=== PATIENT | female | born 1950 | race Caucasian/White ===

== ENCOUNTER → 2016-05-12 | Outpatient (CLI) | payer MEDICARE, OTHER ==
[2016-05-12 08:01] LABS: BASOPHILS % (AUTO) 1 % (0-2); EOSINOPHILS # (AUTO) 0.5 10^3uL; EOSINOPHILS % (AUTO) 4 % (0-4); LYMPHOCYTES # (AUTO) 4.8 X10^3; MEAN CORPUSCULAR HGB CONC 33.7 g/dL (31.0-37.0); MEAN CORPUSCULAR VOLUME 86 FL (80-100); MEAN PLATELET VOLUME 11.6 FL (6.0-9.5); MONOCYTES # (AUTO) 1.3 X10^3; MONOCYTES % (AUTO) 11 % (3-11); NEUTROPHILS # (AUTO) 5.7 X10^3; NEUTROPHILS % (AUTO) 46 % (51-67); PLATELET COUNT 383 10^3uL (150-450)
[2016-05-12 08:39] LABS: ALBUMIN 4.1 g/dL (3.4-5.0); ANION GAP 17.1 MEQ/L (3-15); CALCULATED IONIZED CALCIUM 4.3 mg/dL (3.8-4.6); TOTAL PROTEIN 7.2 g/dL (6.4-8.5)
== END ==
LOC: LAB 07:48
PROVIDERS: ATTEND Internal Medicine
DX: Z00.00 Encounter for general adult medical examination without abnormal findings (principal); K21.9 Gastro-esophageal reflux disease without esophagitis; I10 Essential (primary) hypertension; E78.4 Other hyperlipidemia; R73.09 Other abnormal glucose; E03.8 Other specified hypothyroidism; M81.0 Age-related osteoporosis without current pathological fracture
CPT/HCPCS: 36415; 80053; 80061; 82306; 84443; 85025; 86803

== ENCOUNTER → 2016-05-28 | Outpatient (CLI) | payer MEDICARE, OTHER | LOC: RAD 09:22 | PROVIDERS: ATTEND Internal Medicine Sleep Medicine | DX: R93.8 Abnormal findings on diagnostic imaging of other specified body structures (principal) | CPT/HCPCS: 71250 ==

== ENCOUNTER → 2016-06-10 | Outpatient (CLI) | payer MEDICARE, OTHER | LOC: RAD 13:17 | PROVIDERS: ATTEND Internal Medicine | DX: Z12.31 Encounter for screening mammogram for malignant neoplasm of breast (principal); M81.0 Age-related osteoporosis without current pathological fracture | CPT/HCPCS: 77080; G0202 ==

== ENCOUNTER → 2016-06-27 | Outpatient (CLI) | payer MEDICARE, OTHER ==
[~2016-06-27] VITALS: Ht 157.5 cm; Wt 75.7 kg
[~2016-06-27] MED LIST: NS FLUSH 3 ML PRN IV; ZOLEDRONIC ACID 5 MG/100 ML 100 ML IV ONE
[2016-06-27 13:13] VITALS: BP 137/81
[2016-06-27] MEDS: NS FLUSH 10 ML PRN IV ×2 (13:37→13:38)
== END ==
LOC: EUOP 12:46
PROVIDERS: ATTEND Internal Medicine
DX: M81.0 Age-related osteoporosis without current pathological fracture (principal)
CPT/HCPCS: 36000; J3489; 96365

== ENCOUNTER 2016-07-18 08:46 | Emergency (ER) | payer MEDICARE, OTHER ==
[~2016-07-18] VITALS: Ht 160 cm; Wt 82.5 kg
[~2016-07-18 08:46] MED LIST changes: +ACET-2264 PO; +ACET1TAB43 PO; +ALBU8.5H6 IH; +AMIT10TA6 PO; +AMOX875T2 PO; +ASP81CT PO; +ATOR10TA PO; +ATOR80TA PO; +AZIT250T PO; +CHOL500014 PO; +CITA20TA12 PO; +CLPD75T PO; +CTLP20T PO; +DICY10CA26 GT; +DIPH1TAB45 PO; +GABA300C PO; +GUAI120013 PO; +GUAI473L29 PO; +LEVO750T76 PO; +LEVO75TA4 PO; +LSRT50T PO; +NF-TORA10 PO; -NS FLUSH 3 ML PRN IV; +TIOT18CA IH; -ZOLEDRONIC ACID 5 MG/100 ML 100 ML IV ONE; +[UNRECOGNIZED DRUG - CODE] PO; +protonix PO; +ranitidine PO
--- OUTSIDE RECORDS SUMMARY | 2016-07-18 08:54 | XMS REPORT ---
Author Author GENERATED, SYSTEM Organization Unknown Address Unknown Phone Unavailable Care Team Providers Care Director Non Profit Name Role Phone UNASSIGNED DOCTOR , DOCTOR PP [phone] Reason For Visit Reason for Visit from 07/09/2015 2:15 AM:Pt Stated Reason for Adm : chest pain Chief Complaint CHEST PAIN Social History Social History from 07/10/2015 3:03 PM:Tobacco Use? : Former SmokerSocial History from 07/09/2015 2:15 AM:Tobacco Use? : Former Smoker Functional Status Functional Status from 07/10/2015 7:26 AM:LOC : AlertOriented To : Person,Place, Time,EventWeight Bearing Status : FullAssist Level : Independent# Assists : 1Functional Status from 07/09/2015 8:16 PM:LOC : AlertOriented To : Person,Place, Time,EventWeight Bearing Status : FullAssist Level : Partial# Assists : 1Functional Status from 07/09/2015 7:33 AM:LOC : AlertOriented To : Person,Place, TimeWeight Bearing Status : FullAssist Level : Partial# Assists : 1Functional Status from 07/09/2015 2:15 AM:LOC : AlertOriented To : Person,Place,Time, EventWeight Bearing Status : FullAssist Level : Partial# Assists : 1 Vital Signs Hospital Vital Signs from 07/10/2015 3:15 PM:Height : 5/2 ft,inPulse : 69Respirations : 20BP : 124/57Hospital Vital Signs from 07/10/2015 2:15 PM: Height : 5/2 ft,inPulse : 67Respirations : 20BP : 125/62Hospital Vital Signs from 07/10/2015 1:15 PM:Height : 5/2 ft,inPulse : 74Respirations : 20BP : 115/ 53Hospital Vital Signs from 07/10/2015 12:43 PM:Height : 5/2 ft,inPulse : 75Respirations : 20BP : 132/61Hospital Vital Signs from 07/10/2015 12:15 PM: Height : 5/2 ft,inPulse : 73Respirations : 20BP : 131/64Hospital Vital Signs from 07/10/2015 12:05 PM:Height : 5/2 ft,inPulse : 69Respirations : 20BP : 129/ 71Hospital Vital Signs from 07/10/2015 11:51 AM:Height : 5/2 ft,inPulse : 78Respirations : 20BP : 129/57Hospital Vital Signs from 07/10/2015 11:32 AM: Height : 5/2 ft,inPulse : 73Respirations : 20BP : 133/63Hospital Vital Signs from 07/10/2015 11:14 AM:Height : 5/2 ft,inTemperature : 98.0 FPulse : 72Respirations : 20BP : 128/59Hospital Vital Signs from 07/10/2015 9:33 AM: Height : 5/2 ft,inHospital Vital Signs from 07/10/2015 7:23 AM:Height : 5/2 ft, inTemperature : 97.8 FPulse : 73Respirations : 20BP : 126/58Hospital Vital Signs from 07/10/2015 5:00 AM:Height : 5/2 ft,inTemperature : 97.2 FPulse : 69Respirations : 20BP : 137/65Hospital Vital Signs from 07/10/2015 2:10 AM: Weight : 78.5/ kgHeight : 5/2 ft,inHospital Vital Signs from 07/09/2015 10:40 PM: Height : 5/2 ft,inTemperature : 97.2 FPulse : 77Respirations : 18BP : 130/ 60Hospital Vital Signs from 07/09/2015 7:33 PM:Height : 5/2 ft,inTemperature : 97.6 FPulse : 65Respirations : 20BP : 121/77Hospital Vital Signs from 07/09/2015 3:24 PM:Height : 5/2 ft,inTemperature : 97.4 FPulse : 63Respirations : 20BP : 112/56Hospital Vital Signs from 07/09/2015 11:10 AM:Height : 5/2 ft, inTemperature : 96.5 FPulse : 65Respirations : 18BP : 122/69Hospital Vital Signs from 07/09/2015 7:33 AM:Heart Rate : 60Hospital Vital Signs from 07/09/2015 7:27 AM:Height : 5/2 ft,inTemperature : 97.2 FPulse : 60Respirations : 18BP : 132/64Hospital Vital Signs from 07/09/2015 4:34 AM:Height : 5/2 ft,inTemperature : 96.4 FPulse : 58Respirations : 20BP : 140/66Hospital Vital Signs from 2015 2:15 AM:Weight : 78.8/ kgHeight : 5/2 ft,inHospital Vital Signs from 2015 2:03 AM:Weight : 78.8/ kgHeight : 5/2 ft,inTemperature : 96.7 FPulse : 64Respirations : 20BP : 154/73 Results Chemistry from 07/10/2015 6:31 AMSODIUM 140 MMOL/L (136-145 MMOL/L) POTASSIUM 4.0 MMOL/L (3.5-5.1 MMOL/L) CHLORIDE 106 MMOL/L (98-107 MMOL/L) TCO2 27.8 MMOL/L (21.0-32.0 MMOL/L) *ANION GAP 6.2 MMOL/L L (8.0-16.0 MMOL/L) BUN 16 MG/DL (7-18 MG/DL) CREATININE 0.83 MG/DL (0.55-1.02 MG/DL) *BUN/CREATININE RATIO 19.3 H (9.1-17.0 ) GLUCOSE 104 MG/DL H (65-99 MG/DL) *GFR EST NON AFR WALLISIAN 73 ML/MIN *GFRA EST AFR AMER 84 ML/MIN CALCIUM 9.0 MG/DL (8.5-10.1 MG/DL) BILIRUBIN TOTAL 0.60 MG/DL (0.20-1.00 MG/DL) TOTAL PROTEIN 6.9 GM/DL (6.4-8.2 GM/DL) ALBUMIN 3.6 GM/DL (3.4-5.0 GM/DL) *GLOBULIN 3.3 GM/DL (2.3-3.5 GM/DL) *A/G RATIO 1.1 MG/DL L (1.5-2.2 MG/DL) ALK PHOS 123 U/L H (46-116 U/L) ALT (SGPT) 41 U/L (16-63 U/L) AST (SGOT) 24 U/L (15-37 U/L)Chemistry from 07/09/2015 2:36 PMTROPONIN-I 0.763 NG /ML H (0.000-0.056 NG/ML)Chemistry from 07/09/2015 9:00 AMTROPONIN-I 0.453 NG/ML H (0.000-0.056 NG/ML)Chemistry from 07/09/2015 5:35 AMSODIUM 138 MMOL/L (136-145 MMOL/L) POTASSIUM 4.3 MMOL/L (3.5-5.1 MMOL/L) CHLORIDE 106 MMOL/L (98-107 MMOL/L) TCO2 25.9 MMOL/L (21.0-32.0 MMOL/L) *ANION GAP 6.1 MMOL/L L (8.0-16.0 MMOL/L) BUN 19 MG/DL H (7-18 MG/DL) CREATININE 0.85 MG/DL (0.55-1.02 MG/DL) *BUN/CREATININE RATIO 22.4 H (9.1-17.0 ) GLUCOSE 110 MG/DL H (65-99 MG/DL) *GFR EST NON AFR WALLISIAN 71 ML/MIN *GFRA EST AFR AMER 82 ML/MIN CALCIUM 8.8 MG/DL (8.5-10.1 MG/DL) BILIRUBIN TOTAL 0.40 MG/DL (0.20-1.00 MG/DL) TOTAL PROTEIN 6.6 GM/DL (6.4-8.2 GM/DL) ALBUMIN 3.5 GM/DL (3.4-5.0 GM/DL) *GLOBULIN 3.1 GM/DL (2.3-3.5 GM/DL) *A/G RATIO 1.1 MG/DL L (1.5-2.2 MG/DL) ALK PHOS 123 U/L H (46-116 U/L) ALT (SGPT) 42 U/L (16-63 U/L) AST (SGOT) 28 U/L (15-37 U/L)Chemistry from 07/09/2015 2:48 AMTROPONIN-I 0.071 NG /ML H (0.000-0.056 NG/ML)Hematology from 07/10/2015 6:31 AMWBC 8.6 X10e3/UL (3.6- 11.2 X10e3/UL) RBC 4.72 X10e6/UL (3.63-4.92 X10e6/UL) HEMOGLOBIN 13.9 G/DL (11.0-14.3 G/DL) HEMATOCRIT 41.9 % (31.2-41.9 %) *MCV 88.7 FL (79.0-98.0 FL) *MCH 29.3 PG (27.0-33.0 PG) *MCHC 33.1 G/DL (32.0-36.0 G/DL) *RDW 14.2 % (12.3-17.0 %) *RDWSD 43.3 (37.1-47.8 ) PLATELET 337 X10e3/UL (159-386 X10e3/UL) *MPV 10.4 FL (7.4-10.4 FL) AUTOMATED DIFF PERFORMED SEGS 54.1 % *LYMPHOCYTES 28.7 % *MONOCYTES 10.7 % *EOSINOPHILS 5.5 % *BASOPHILS 1.0 % *ABSOLUTE NEUTROPHILS 4.70 X10e3/UL (1.80-7.80 X10e3/UL) *ABSOLUTE LYMPHOCYTES 2.50 X10e3/UL (1.00-3.00 X10e3/UL) *ABSOLUTE MONOCYTES 0.90 X10e3/UL (0.30-1.00 X10e3/UL) *ABSOLUTE EOSINOPHILS 0.50 X10e3/UL (0.00-0.50 X10e3/UL) *ABSOLUTE BASOPHILS 0.10 X10e3/UL (0.00-0.20 X10e3/UL) *PLATELET SLIDE REVIEW ADEQUATE (ADEQUATE )Hematology from 07/09/2015 5:35 AMWBC 13.0 X10e3/UL H (3.6-11.2 X10e3/UL) RBC 4.39 X10e6/UL (3.63-4.92 X10e6/UL) HEMOGLOBIN 12.7 G/DL (11.0-14.3 G/DL) HEMATOCRIT 38.9 % (31.2-41.9 %) *MCV 88.5 FL (79.0-98.0 FL) *MCH 28.9 PG (27.0-33.0 PG) *MCHC 32.7 G/DL (32.0-36.0 G/DL) *RDW 14.3 % (12.3-17.0 %) *RDWSD 44.2 (37.1-47.8 ) PLATELET 304 X10e3/UL (159-386 X10e3/UL) *MPV 11.4 FL H (7.4-10.4 FL) *MANUAL DIFF PERFORMED SEGS 32.0 % *BANDS 8.0 % *LYMPHOCYTES 53.0 % *MONOCYTES 4.0 % *EOSINOPHILS 3.0 % *BASOPHILS 0.0 % *ABSOLUTE NEUTROPHILS 5.20 X10e3/UL (1.80-7.80 X10e3/UL) *ABSOLUTE LYMPHOCYTES 6.89 X10e3/UL H (1.00-3.00 X10e3/UL) *ABSOLUTE MONOCYTES 0.52 X10e3/UL (0.30-1.00 X10e3/UL) *ABSOLUTE EOSINOPHILS 0.39 X10e3/UL (0.00-0.50 X10e3/UL) *ABSOLUTE BASOPHILS 0.00 X10e3/UL (0.00-0.20 X10e3/UL) MARGA CELLS 2+ Coagulation from 07/09/2015 5:35 AMPARTIAL THROMBOPLASTIN TIME 85.8 SECONDS H (23.0-31.0 SECONDS)DX Radiology from 07/09/2015 6:44 AMCHEST 1 VIEW History: Chest Pain Priors: Chest x-ray 06/30/2012 Findings: The heart size and pulmonary vasculature remain within normal limits. No consolidating infiltrate, significant pleural effusion or pneumothorax is seen. Impression: No acute abnormality. Electronically signed by: Sharri Acosta MD Dictated: 07/09/2015 07:27 Problems Encounter Diagnosis Acute Pain Status:Active. Chest Pain Status:Active. Fall Risk Status:Active. Mobility Impairment Status:Active. Additional Problems Pain in Lower Extremity Comment:Problem resolved by [facility] Workflow upon Discharge, Status:Resolved. Encounters Encounter Diagnosis Acute Pain Status:Active. Chest Pain Status:Active. Fall Risk Status:Active. Mobility Impairment Status:Active. Plan of Care Follow-up Appointments from 07/10/2015 3:03 PM:#1 Office appointment: : Primary care within the weekTreatment Plan from 07/09/2015 3:06 PM:Care Management Note : Patient was admitted as observation d/t chest pain with shortness of breath. Troponin at admission was noted at 0.071. CXR was negative. Patient was started on a Heparin drip, and cardio was consulted. This am after admission started having chest pain again and was relieved with nitro. Troponin elevated to 0.453, and cardio changed patient to a Angiomax drip. Patient is scheduled for a heart cath in am. Plavix was also started. CM will continue to follow. Procedures Completed , on 12/05/2011 12:00 AMCompleted , on 12/05/2011 12:00 AMCompleted , on 12/05/2011 12:00 AMCompleted , on 12/05/2011 12:00 AMCompleted , on 12/05/2011 12:00 AMCompleted , on 12/05/2011 12:00 AMCompleted , on 12/05/2011 12:00 AMCompleted , on 12/05/2011 12:00 AMCompleted , on 12/01/2011 12:00 AMCompleted , on 12/01/2011 12:00 AMCompleted , on 12/01/2011 12:00 AMCompleted , on 12/01/2011 12:00 AMCompleted , on 12/01/2011 12:00 AMCompleted , on 12/02/2010 12:00 AMCompleted , on 12/02/2010 12:00 AMCompleted , on 12/02/2010 12:00 AMCompleted , on 09/11/2010 12:00 AMCompleted , on 09/11/2010 12:00 AMCompleted , on 09/11/2010 12:00 AMCompleted , on 09/11/2010 12:00 AMCompleted , on 09/11/2010 12:00 AMCompleted , on 09/11/2010 12:00 AMCompleted , on 09/11/2010 12:00 AMCompleted , on 09/11/2010 12:00 AMCompleted , on 11/28/2008 12:00 AMCompleted , on 10/13/2008 12:00 AMCompleted , on 09/28/2008 12:00 AM Immunizations No immunizations administered or ordered. Hospital Course Hospital Discharge Instructions How to care for yourself at home from 07/10/2015 3:03 PM:Discharge Activity : Activity as toleratedDischarge Diet : Modification as given by physicianDischarge Diet: : low fat, low cholesterolCall your doctor if: : Fever over 101 F or severe chills,Chest pain or other unexplained symptoms,Tingling or numbness develops,A sudden increase or decrease in weight,You have persistent or worsening symptoms,If you have Heart Failure and you gain 3 pounds within 1 week or your symptoms worsen. (Weigh at home tomorrow morning) Specific Discharge Teaching Instructions provided: : YesSpecific Discharge Teaching Instructions Reviewed: : Cardiology Post Catherization InstructionsDischarge on Warfarin : No Allergies, Adverse Reactions, Alerts tramadol causes Unknown.trimethoprim causes Unknown.sulfamethoxazole causes Unknown.doxycycline causes Unknown.tetracycline causes Unknown.cephalexin causes Unknown.Benzodiazepines causes Unknown.escitalopram causes Unknown.paroxetine causes Unknown.nitrofurantoin causes Unknown.morphine causes Swelling/ Edema.Chantix causes unspecified.Penicillins causes Hives.No Latex Allergy.No IV Contrast Allergy.No Known Food Allergies. Medication It is the responsibility of the patient or patient guest relations representative to confirm the list of medications with either the patient's personal care provider or the patient's follow-up care provider to ensure the patient has an appropriate list of medications to take at home. Discharge medicationsNew medicationsclopidogrel (Plavix) 75 mg Tablet, Ordered By: BRENDA ROSS-DO Directions: 1 tablet oral daily Continued medicationsatorvastatin 80 mg Tablet, Ordered By: BRENDA OSORIOCO-DO Directions: 1 tablet oral daily at bedtime cholecalciferol (vitamin D3) 5,000 unit Capsule, Ordered By: BRENDA OSORIOCO-DO Directions: 1 capsule oral daily with breakfast citalopram (CeleXA) 20 mg Tablet, Ordered By: BRENDA OSORIOCO-DO Directions: 1 tablet oral daily levothyroxine (Synthroid) 75 mcg Tablet, Ordered By: BRENDA GAMA ROSS-DO Directions: 1 tablet oral daily before breakfast losartan 50 mg Tablet, Ordered By: BRENDA BOWLES Directions: 1 tablet oral daily Changed medicationsaspirin 81 mg tablet,chewable, Ordered By: BRENDA BOWLES Directions: 1 tablet oral daily Stopped medicationsNone
[2016-07-18] MEDS ORDERED: CLON0.5T3 PO (09:03)
[2016-07-18 10:14] LABS: BASOPHILS % (AUTO) 0 % (0-2); EOSINOPHILS # (AUTO) 0.5 10^3uL; EOSINOPHILS % (AUTO) 4 % (0-4); LYMPHOCYTES # (AUTO) 4.1 X10^3; MEAN CORPUSCULAR HEMOGLOBIN 28.5 PG (26.0-34.0); MEAN CORPUSCULAR HGB CONC 33.1 g/dL (31.0-37.0); MEAN CORPUSCULAR VOLUME 86 FL (80-100); MEAN PLATELET VOLUME 11.9 FL (6.0-9.5); MONOCYTES # (AUTO) 1.4 X10^3; MONOCYTES % (AUTO) 13 % (3-11); NEUTROPHILS # (AUTO) 4.8 X10^3; NEUTROPHILS % (AUTO) 44 % (51-67); PLATELET COUNT 382 10^3uL (150-450); WHITE BLOOD COUNT 10.88 10^3uL (4.0-11.0)
--- NOTE | 2016-07-18 10:24 | Diagnostic Imaging Report ---
PROCEDURE: CT head without contrast. TECHNIQUE: Multiple contiguous axial images were obtained through the brain without the use of intravenous contrast. INDICATION: Headache, tingling over the head and unsteady on feet. EXAMINATION: CT brain without contrast 07/18/2016. COMPARISONS: 06/25/2015. FINDINGS: There is a hypodensity within the anterior aspect of the left parietal lobe which was present on previous imaging consistent with a chronic process. Other scattered hypodensities in a periventricular distribution and deep white matter unchanged. No definite superimposed acute abnormalities appreciated. There is no acute hemorrhage. No mass, mass effect, or midline shift is noted. There is no hydrocephalus. Paranasal sinuses demonstrate mild mucosal thickening with a retention polyp and/or cyst in the left ethmoid air cells. Tiny foci of air noted in the region of the suprasellar region likely injected during line placement. These likely lie in the cavernous sinuses. IMPRESSION: Chronic changes described above with no acute abnormalities appreciated. Dictated by: Dictated on workstation # [id number]
[2016-07-18 10:40] LABS: ALBUMIN 4.2 g/dL (3.4-5.0); ANION GAP 15.5 MEQ/L (3-15); CALCULATED IONIZED CALCIUM 3.6 mg/dL (3.8-4.6); TOTAL PROTEIN 7.4 g/dL (6.4-8.5)
[2016-07-18 11:17] LABS: BILIRUBIN,URINE Negative (Negative); CLARITY,URINE Clear; COLOR,URINE Yellow; GLUCOSE, URINE (UA) Negative (Negative); LEUKOCYTE ESTERASE ,URINE Negative (Negative); UROBILINOGEN,URINE 0.2 mg/dL (0.2-1.0)
[2016-07-18 12:24] VITALS: BP 131/80
== END 2016-07-18 12:35 | disposition home or self-care (01) ==
LOC: EDUNIT# 08:46 → ED 08:49
DX: R27.0 Ataxia, unspecified (principal); I10 Essential (primary) hypertension; Z86.73 Personal history of transient ischemic attack (TIA), and cerebral infarction without residual deficits
CPT/HCPCS: 36415; 70450; 80053; 81003; 85025; 85610; 86140; 99283; 99284

== ENCOUNTER → 2016-07-31 | Outpatient (CLI) | payer MEDICARE, OTHER ==
[~2016-07-31] MED LIST changes: +CLON0.5T3 PO
[2016-07-31 07:59] LABS: BASOPHILS % (AUTO) 1 % (0-2); EOSINOPHILS # (AUTO) 0.4 10^3uL; EOSINOPHILS % (AUTO) 4 % (0-4); LYMPHOCYTES # (AUTO) 3.8 X10^3; MEAN CORPUSCULAR HEMOGLOBIN 27.9 PG (26.0-34.0); MEAN CORPUSCULAR HGB CONC 32.6 g/dL (31.0-37.0); MEAN CORPUSCULAR VOLUME 86 FL (80-100); MEAN PLATELET VOLUME 11.7 FL (6.0-9.5); MONOCYTES # (AUTO) 1.2 X10^3; MONOCYTES % (AUTO) 11 % (3-11); NEUTROPHILS % (AUTO) 48 % (51-67); PLATELET COUNT 402 10^3uL (150-450); WHITE BLOOD COUNT 10.54 10^3uL (4.0-11.0)
[2016-07-31 08:09] LABS: ALBUMIN 4.3 g/dL (3.4-5.0); TOTAL PROTEIN 7.5 g/dL (6.4-8.5)
== END ==
LOC: LAB 07:38
PROVIDERS: ATTEND Internal Medicine
DX: R74.8 Abnormal levels of other serum enzymes (principal); R73.09 Other abnormal glucose; D72.829 Elevated white blood cell count, unspecified
CPT/HCPCS: 36415; 80076; 82977; 83036; 85025

== ENCOUNTER → 2016-08-06 | Outpatient (CLI) | payer MEDICARE, OTHER ==
[~2016-08-06] MED LIST changes: +HYOS0.3710 PO; +OMEP20TA PO; +SERT25TA69 PO
--- NOTE | 2016-08-06 12:01 | Diagnostic Imaging Report ---
INDICATION: Dysphagia. History of stroke. COMPARISON: None Total fluoro time: 2.1 minutes FINDINGS: Production Cloth Cutter views of the chest show normal cardiac silhouette and pulmonary vasculature. Lungs are clear and show no focal consolidations, large effusions, or pneumothoraces. Double contrast esophagram was performed. There is normal distensibility of the esophagus. No focal strictures or masses are identified. There is no evidence of obstruction. In the standing position, contrast freely washes through the esophagus into the stomach. Esophageal mucosal pattern is unremarkable. However, in supine positioning, there is suboptimal stripping of contrast from the esophagus into the stomach. This is secondary to discoordinated secondary waves. Tertiary waves are also noted. There is no hiatal hernia. No gastroesophageal reflux was witnessed during the exam. IMPRESSION: 1. Discoordinated secondary waves, which results in suboptimal stripping of contrast in the stomach. 2. No focal stricture or obstruction. Dictated by: Dictated on workstation # [id number]
== END ==
LOC: RAD 10:50
PROVIDERS: ATTEND Surgery
DX: R13.19 Other dysphagia (principal)
CPT/HCPCS: 74220

== ENCOUNTER 2016-08-13 06:26 | Day surgery (SDC) | payer MEDICARE, OTHER ==
[2016-08-13] VITALS (10 sets, daily range): BP systolic 103–149; BP diastolic 52–92
[~2016-08-13] VITALS: Ht 160 cm; Wt 82.3 kg
[~2016-08-13 06:26] MED LIST changes: -HYOS0.3710 PO; +LACTATED RINGERS 1,000 ML IV SCH; -OMEP20TA PO; -SERT25TA69 PO; +SODIUM CHLORIDE FLUSH 3 ML SYR IV PRN
--- OUTSIDE RECORDS SUMMARY | 2016-08-13 06:32 | XMS REPORT ---
Author Author GENERATED, SYSTEM Organization Unknown Address Unknown Phone Unavailable Care Team Providers Care Wholesale Loan Processor Name Role Phone UNASSIGNED DOCTOR , DOCTOR PP [phone] Reason For Visit Reason for Visit from [...] H (65-99 MG/DL) *GFR EST NON AFR SOMALI 73 ML/MIN *GFRA EST AFR AMER 84 [...] H (65-99 MG/DL) *GFR EST NON AFR SOMALI 71 ML/MIN *GFRA EST AFR AMER 82 [...] the responsibility of the patient or patient healthcare sales representative to confirm the list of medications [...] citalopram (CeleXA) 20 mg Tablet, Ordered By: BRENAD OSORIOCO-DO Directions: 1 tablet oral daily levothyroxine (Synthroid) 75 mcg Tablet, Ordered By: BRENDA GAMA ROSS-DO Directions: 1 tablet oral daily before breakfast losartan 50 mg Tablet, Ordered By: BRENDA BOWLES Directions: 1 tablet oral daily Changed medicationsaspirin 81 mg tablet,chewable, Ordered By: BRENDA BOWLES Directions: 1 tablet oral daily Stopped medicationsNone
[2016-08-13] MEDS ORDERED: HYOS0.3710 PO (06:44)
[2016-08-13] MEDS ORDERED: SERT25TA69 PO (06:44)
[2016-08-13] MEDS ORDERED: OMEP20TA PO (06:44)
[2016-08-13] MEDS ORDERED: LIDOCAINE 4% TOPICAL 4.5 ML SYR ONE (06:52)
[2016-08-13] MEDS ORDERED: SIMETHICONE 40 MG/0.6 ML (MYLICON DROPS) ORAL SYRINGE ONE (06:52)
[2016-08-13] MEDS ORDERED: MIDAZOLAM 2 MG/2 ML (VERSED) VIAL ONE (07:15)
[2016-08-13] MEDS ORDERED: PROPOFOL 20 ML IV ONE (07:15)
[2016-08-13] MEDS ORDERED: ALFENTANIL 500 MCG/ML (ALFENTA) 5 ML AMP IV ONE (07:15)
--- NOTE | 2016-08-13 09:55 | OPERATIVE REPORT ---
DATE OF OPERATION: 08/13/2016 PRE-OPERATIVE DIAGNOSIS: 1. Dysphagia. 2. Status post Jack fundoplication POST-OPERATIVE DIAGNOSIS: Status post Jack fundoplication OPERATIVE PROCEDURE: Esophagogastroduodenoscopy with biopsies SURGEON: Denny Unger MD ANESTHESIA: Monitored anesthesia care FINDINGS: 1. The esophagus appeared normal, with an intact GE junction and no evidence of stricture or stenosis. Biopsies were obtained from the GE junction at the mid esophagus. 2. The wrap appeared to be intact at the fundus and a photograph was obtained. There was mild inflammation seen in the distal stomach, but no ulcers or neoplasia. The duodenum appeared normal. INDICATION: The patient is a 66-year-old referred by Dr. Cowart due to persistent dysphagia and heartburn, status post Jack fundoplication several years ago. She presents for upper endoscopy. A Barium swallow was done previously. DESCRIPTION OF PROCEDURE: The patient was informed of the risks and benefits and agreed to proceed. Her oropharynx was anesthetized with Xylocaine and a bite block was placed. Sedation was administered. The lighted endoscope was passed down the esophagus and into the stomach without difficulty. The pylorus was cannulated and the first, second and third portions of the duodenum were visualized. No inflammation was seen. The scope was brought back into the stomach where the antrum, body, and fundus were inspected. There was mild erythematous streaking in the antrum, but no other significant pathology. Retroflexion revealed the cardia to be unremarkable with the wrap noted. The diaphragmatic hiatus at 36 cm with the squamocolumnar junction was seen at the same level. A photograph was obtained. I then took circumferential biopsies at that level. The distal and proximal esophageal mucosa appeared completely normal. Biopsies were obtained from 25 cm as well. The scope was removed completing the procedure. The patient tolerated the procedure without complications. Pathology is pending.
== END 2016-08-13 10:41 | disposition home or self-care (01) ==
LOC: ASC 06:26
PROVIDERS: ATTEND Surgery
DX: R13.10 Dysphagia, unspecified (principal); K21.0 Gastro-esophageal reflux disease with esophagitis; G40.909 Epilepsy, unspecified, not intractable, without status epilepticus; I25.10 Atherosclerotic heart disease of native coronary artery without angina pectoris; Z95.5 Presence of coronary angioplasty implant and graft; G47.33 Obstructive sleep apnea (adult) (pediatric); I10 Essential (primary) hypertension; E03.9 Hypothyroidism, unspecified; Z86.73 Personal history of transient ischemic attack (TIA), and cerebral infarction without residual deficits; Z79.82 Long term (current) use of aspirin; Z98.890 Other specified postprocedural states
CPT/HCPCS: 43239; 88305; 88312; 93005; A9270; J2250; J7120

== ENCOUNTER 2016-08-26 08:00 | Outpatient (RCR) | payer MEDICARE, OTHER ==
--- NOTE | 2016-06-02 14:51 | PT/OT/ST INITIAL EVALUATION ---
Department of Health and Human Services Form Approved Health Care Financing Administration OMB No. [id number] PLAN OF CARE/ASSESSMENT FOR OUTPATIENT REHABILITATION (Complete for Initial Claims Only) 1. LAST NAME quote clerk NAME Litzy Sahu 2. ACC # [id number] 3. [facility] [id number] 4. PROVIDER NO. [id number] 5. TYPE: X ANTHROPOLOGY FACULTY MEMBER 6. PRIOR THERAPY 03/03/2016-03/07/2016 7. PRIMARY DX Arteriosclerotic cerebrovascular disease 8. SECONDARY DX Aphasia 9. ONSET DATE February 22, 2016 10. REFERRAL DATE May 28, 2016 11. SOC. DATE May 29, 2016 12. CHARGES 13. G. CODES Currently [id number] 40 to 59% impaired. Goal is [id number] 1 to 19% impaired. 14. PRIOR LEVEL OF FUNCTION; PERTINENT HISTORY (Prior therapy results, reason for referral.) S: Prior to today's therapy session, the patient did consent to today's evaluation and treatment. The patient is a 66-year-old female referred to speech therapy by Dr. Cowart to address aphasia. The patient rates her overall and general health as fair. Mechanism of injury: The patient states on February 21, she was at [facility] when she had a TIA. She was taken by ambulance to [facility] and she was there for 4 days. At the time she reported some weakness on her right side, and some difficulty with word finding. She then went home with [facility], and received speech therapy for one week. She had an eco, cardiac recorder, and a heart cath placed on February 29, 2016. The patient's cardiac recorder is a [employer] Work[employer]. Last week she had an MRI and an EEG completed and this showed episodic rhythmic activity improved compared to the last EEG. Her MRI scan of the head was reviewed with the radiologist and that showed a subcortical infarct in the left frontal lobe. This had no enhancement or edema. She had a carotid ultrasound done last June and that showed no stenosis. Primary Complaint: The patient complains today of word-finding difficulties, and difficulties remembering things. She feels like she is burning her food at home. She can't understand how to bake things. She doesn't understand what 3/4 of a cup is, or what 2-1/2 minute's means on the microwave. She was very emotional and stated that this not her normal self. She is not normally like this. She is having a lot of difficulty remembering things and she is very concerned about word finding and memory. 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 She is unable to drive, or work at this time. Social history: She lives at home by herself. Aggravating factors: She states no aggravating factors. Diagnostic tests: Includes the MRI and EEG. Past medical history: She was seeing Dr. Ramirez for a high white blood cell count, but this all came back normal. She does have enlarged lymph nodes around her lungs and a persistent cough that she is seeing a dude ranch manager for and she will be going back to see him soon. The patient has a past medical history of GERD, irritable bowel syndrome, hyperlipidemia, acute coronary syndrome, osteoporosis, vitamin D deficiency, impaired glucose tolerance, allergic rhinitis, hypertensive disorder, chronic diarrhea, paleness, and exertional shortness of breath. Medication list: The patient's medications are listed in the chart; however, she is on no medications that should affect her word finding or memory. 15. INITIAL ASSESSMENT/SAFETY PRECAUTIONS/MEDICAL COMPLICATIONS (Level of function at start of care. Be specific, use objective measures, list problems.) O: The patient was very emotional during the assessment and often began crying and, when asked a question, she would stop and really have to think about everything. She had to really think about when she was signing her name for the consent. She would often stop and say, what did you ask me? She doesn't remember things. She states, at home, she really enjoys doing jigsaw puzzles and these are very tough for her to do now. She cannot comprehend what she is reading. She has a very hard time baking now. SPECIAL TESTS: The patient was given the Ulices Cognitive Assessment. She scored a 16/30 on this. For visuospatial executive functioning she scored 4/5. For naming, she scored 3/3. For attention, she scored 2/6. For language she scored 0/3. For obstruction she scored 2/2. For delayed recall she scored 0/5. For orientation she scored 5/6. The patient was then given an evaluation of aphasia. When asked to say the month and the year, she could say them all independently, but it took her a very long time. It was very slow and she had to really think about it. She would start saying them, and then had to stop and start over. She did the same for counting 1 through 10 and saying the days of the week. She was able to say them all; however, she had to repeat over and over to herself what she was doing and was very slow and she had to use her fingers to this. The patient was given a list of objects. She was able to name them all, recognize the words and recognize the function of them all. She was asked yes or no questions and could answer yes or no questions with 90% accuracy. She was able to follow one-step directions independently and two-step directions with 75% accuracy. She was unable to follow three-step directions. The patient was then given phrases to repeat and she was able to repeat phrases up to 6 syllables. She had difficulty with 7, 8 and 9 syllable repetitions. She was given logic questions and was able to answer these with 38% accuracy. She was given tasks for sequencing and she had to repeat the question multiple times in order to understand what she was doing and she would state the object needed, for example when asked how you would make a sandwich, she said, have some bread and reza and meat, but then could not put it together as what she would do with it. When asked what you would do washing a car, she said you drive it through the car wash. She just had a very difficult time elaborating on the directions. When asked to define terms of words, she was able to define simple words. For car, she was able to state you get into it and drive. For a tree, she said it was a nuisance, for a window it is something you look out, but she was not very elaborate on her answers. When the words became more difficult, such as solo, tricky and controversial, she could not define these words. The patient was able to read numbers independently. She had severe difficulty writing checks and dealing with money. TODAY'S TREATMENT: Today's treatment included teaching the patient to expand on words and memory, and things to work on at home. 16. INITIAL POC: (Specify procedures, modalities, short and long term care administrator goals) A: PROGNOSIS: Due to a personal health rating of fair, the patient has a good prognosis for therapy. INFORMED CONSENT: The diagnosis, prognosis, treatment, risks and expected outcome were discussed with the patient and the patient agreed to today's established plan of care. GOALS: 1. The patient to complete immediate forward memory with 80% accuracy. 2. The patient to complete repetition of 7 and 8 word syllables independently. 3. The patient to name 10 words in a given category within 1 minute. 4. The patient to complete 4 word delayed memory with 80% accuracy. 5. The patient to be oriented x6. 6. The patient to follow a 2-step direction independently. 7. The patient to state the month, the year, the dates of week, and counting from 1 to 10 independently at a normal rate. 8. The patient to write checks independently. 9. The patient to complete activities with money independently. PLAN: Plan to treat patient 3 times per week for 4 weeks in order to address cognitive communication deficits. Therapy to include activities for memory and cognitive communication increase for language development. 17. FUNCTIONAL LEVEL (End of claim period) 18. PHYSICIAN SIGNATURE ? ON FILE OR ENTER HERE: 19. DATE: I certify the need for these services furnished under this plan of care and if for partial hospitalization. 20. CERTIFICATION FROM THROUGH [id number]
[~2016-08-26 08:00] MED LIST changes: +HYOS0.3710 PO; -LACTATED RINGERS 1,000 ML IV SCH; +OMEP20TA PO; +SERT25TA69 PO; -SODIUM CHLORIDE FLUSH 3 ML SYR IV PRN
== END 2016-08-27 | disposition home or self-care (01) ==
LOC: ST 08:00
PROVIDERS: ATTEND Internal Medicine
DX: I69.820 Aphasia following other cerebrovascular disease (principal); I69.811 Memory deficit following other cerebrovascular disease; I69.810 Attention and concentration deficit following other cerebrovascular disease; I69.818 Other symptoms and signs involving cognitive functions following other cerebrovascular disease
CPT/HCPCS: 92507; 92523; G9159; G9160

== ENCOUNTER → 2016-09-10 | Outpatient (CLI) | payer MEDICARE, OTHER ==
[~2016-09-10] MED LIST changes: +CLIN-78 PO
[2016-09-10 17:01] VITALS: BP 142/84
--- NOTE | 2016-09-10 17:01 | Urgent Care T Sheet Gen (E) ---
Intake General Temperature (Fahrenheit): 97.9 Pulse: 88 Blood Pressure Systolic: 142 Blood Pressure Diastolic: 84 Respirations: 22 SPO2: 97 Description of Symptoms Patient presents with sore to the perineum area. Patient was referred to Dr Wilcox in June regarding vaginal itching. patient states she was given an ointment however didn't help. With time, the perineum has become very itchy. Patient has been using OTC cream with out improvement. Now feels that there is a scratch/skin breakdown to the area. Patient went to Dr Wilcox's office recently regarding symptoms and was treated very poorly and refuses to see them again. Dr Cowart is out of the office and she doesn't seen him until middle of September. Is moving to Dr Rose. Been taking sitz bathes often. History of Present Illness Allergies: Coded Allergies: morphine (Verified Allergy, Severe, POSSIBLE ANAPHALAXIS, 10/18/12) PT STATES THAT SHE HAS HAD MORPHINE BEFORE WITHOUT ANY PROBLEM BUT WHEN SHE RECIEVED IV MORPHINE 03/2012 SHE HAD AN ANAPHALCTIC REACTION IN WITCH HER THROAT CLOSED AND SHE HAD HIVES. Penicillins (Verified Allergy, Mild, 08/03/13) Benzodiazepines (Verified Allergy, Unknown, 08/03/13) Nitrofurantoin Macrocrystal (Verified Allergy, Unknown, 08/03/13) cephalexin (Verified Allergy, Unknown, 08/03/13) doxycycline (Verified Allergy, Unknown, 08/03/13) escitalopram oxalate (Verified Allergy, Unknown, 08/03/13) paroxetine HCl (Verified Allergy, Unknown, 08/03/13) sulfamethoxazole (Verified Allergy, Unknown, 08/03/13) tetracycline (Verified Allergy, Unknown, 08/03/13) tramadol (Verified Allergy, Unknown, 08/03/13) trimethoprim (Verified Allergy, Unknown, 08/03/13) Home Meds Active Scripts Clindamycin HCl 150 Mg [id number] Mg PO QID Infection #28 CAP Ref 0 Prov:JULIETA LEDBETTER 09/10/16 Reported Medications Hyoscyamine Sulfate 0.375 Mg Tab.er.12h0.375 Mg PO TID 08/13/16 Sertraline HCl 25 Mg Ucscdv62 Mg PO DAILY 08/13/16 Omeprazole 20 Mg Tablet.dr20 Mg PO DAILY 08/13/16 Clonazepam 0.5 Mg Tablet0.5 Mg PO HS 07/18/16 Levothyroxine Sodium 75 Mcg Jrbael92 Mcg PO DAILY 07/08/15 Citalopram Hydrobromide (Celexa)20 Mg Gluolm65 Mg PO DAILY 09/07/13 Losartan Potassium 50 Mg Bxakfx57 Mg PO DAILY 09/01/13 Cholecalciferol (Vitamin D3) (Vitamin D)5,000 Unit Xriesy41,000 Unit PO UD 09/01/13 Aspirin (Baby Aspirin)81 Mg Tab.iqsc834 Mg PO DAILY 10/19/12 Atorvastatin (Lipitor)80 Mg Rjuonx36 Mg PO HS 10/17/12 Respiratory Constitutional Symptoms: No syptoms reported EENTM: No symptoms reported Respiratory: No symptoms reported Cardiovascular: No symptoms reported Genitourinary: Other (perineum sore) All Other Systems Reviewed Remaining Systems: All other systems reviewed with negative findings Past Xdpkgut-Meqber-Rhnohm Hx Patient's Social History Alcohol Use: Denies Use Smoking Status: Former smoker Infectious Disease Exposure: No Recent foreign travel: Yes Surgeries/Hospitalizations Hospitalization/Surgery Hx: Pt had a Fundo on September 01, 2013; part of colon; removed heart stents x4; orthopedic surgery to hands and feet, spleenectomy, Rt knee surgery to repair, lap shae patella fx, bilat cataract surg, bilat Lasik. Cholecystectomy, repair of hiatel hernia, repair of three abdominal hernias all on 12/31/13. Stroke February 2016 Respiratory Respiratory History: Sleep Apnea, Other, see comment, None Comment: does not use c-pap, chronic cough Cardiovascular Cardiovascular History: Hypertension, GA (Heart Attack), Deep Vein Thrombosis, Varicose Veins, Hypercholesterolemia Comment: STENT X 5, has cardiac recorder implanted Neuro/Muscular Neuro/Muscular History: Stroke, Headache, Migraine, Seizures, History of falls , Arthirits, Visual impairment Comment: has not had a migraine for a long time Reproductive System Sexually Transmitted Diseases: No (NA) Genitouinary Genitourinary History: Other, see comments Comment: when sneeze urinates Gastrointestinal GI/Endocrine History: Thyroid disorder, Heartburn, Gallbladder problems, GERD, Diarrhea Comment: DIVERTICULITIS, mateo Diabetes Diabetes: No HEENT Impaired Vision: Glasses Hearing Impaired: None Integumentary Integumentary History: None Comment: MULT ABRASIONS LT ARM AND LT LEG Cancer History of Cancer?: No Psychosocial Behavior Disorders: None Blood Transfusions Hx of Blood transfusions: Yes Reaction to blood transfusion: No Physical Exam Physical Exam General Appearance: WD/WN No apparent distress Respiratory Exam: Lungs clear Normal breath sounds Cardiovascular Exam: Regular rate, rhythm Comment Examination of the pelvic area reveals: minor hemorrhoid along the anus that isn't red, inflamed or incarcerated. along the perineum, there is redness and swollen skin. no visible laceration or sore however general area is irritated. skin is shiny and red. no purulent drainage however some sort of ointment is noted in the area. Departure Urgent Care Impression Impression: Primary Impression: Skin infection Departure Disposition: HOME OR SELF-CARE Condition: Stable Referrals: DARLENE COWART MD (PCP) Additional Instructions: Long discussion with patient regarding history and treatment. With her numerous medication allergies, I am limited on what I can use to treat. I have started her on Clindamycin. DC all topical meds. Want the area to dry out. If she needs anything for itch relief, may use medicated wipe. F/U with Dr Cowart. I believe the infection is due to prolonged skin irritation and itching Patient understands DC instructions. All questions were answered. Scripts Clindamycin HCl 150 Mg Kvdhasd190 Mg PO QID Infection #28 CAP Ref 0 Prov:JULIETA LEDBETTER 09/10/16 End of report . JULIETA LEDBETTER September 10, 2016 16:08
== END ==
LOC: MHUC 15:26
PROVIDERS: ATTEND Physician Assistant
DX: L08.89 Other specified local infections of the skin and subcutaneous tissue (principal)
CPT/HCPCS: 99213

== ENCOUNTER 2016-09-11 08:00 | Outpatient (RCR) | payer MEDICARE, OTHER | END 2016-09-15 11:36 | disposition home or self-care (01) | LOC: ST 08:00 | PROVIDERS: ATTEND Internal Medicine | DX: I69.391 Dysphagia following cerebral infarction (principal); I69.811 Memory deficit following other cerebrovascular disease; I69.810 Attention and concentration deficit following other cerebrovascular disease; I69.818 Other symptoms and signs involving cognitive functions following other cerebrovascular disease ==